=== PATIENT | female | born 1940 | race Hispanic/Latino ===

== ENCOUNTER 2024-01-16 17:00 | Inpatient (IN) | payer MEDICARE ==
[~2024-01-16] VITALS: Ht 152.4 cm; Wt 59.9 kg
[2024-01-16 00:25] VITALS: BP 87/47; PULSE 62; RESP 18; TEMP 99; O2SAT 100
[2024-01-16 18:48] LABS: CLARITY,URINE TURBID (CLEAR); COLOR,URINE YELLOW (YELLOW); LEUKOCYTE ESTERASE ,URINE LARGE (NEGATIVE); NITRITE,URINE NEGATIVE (NEGATIVE); PH,URINE 6 (5 - 7); PROTEIN,URINE DIPSTICK >=300 (NEGATIVE)
[2024-01-16 18:49] LABS: BILIRUBIN,URINE SMALL (NEGATIVE); GLUCOSE, URINE NEGATIVE (NEGATIVE); KETONES,URINE 2+ (NEGATIVE); URINE UROBILINOGEN >=8 mg/dL (0.2 - 1)
[2024-01-16 18:57] LABS: BACTERIA,URINE FEW /HPF; EPITHELIAL CELLS,URINE RARE /LPF; WBC,URINE (MAN) >50 /HPF (0-5)
[2024-01-16 19:01] LABS: CORONAVIRUS COVID-19 AG NEGATIVE (NEGATIVE); INFLUENZA A AG NEGATIVE (NEGATIVE); INFLUENZA B AG NEGATIVE (NEGATIVE)
[2024-01-16 19:03] LABS: BASOPHILS % 0.2 % (0.0-1.0); HEMATOCRIT 36.9 % (34.2-44.1); HEMOGLOBIN 11.6 g/dL (12.0-16.0); LYMPHOCYTES # (AUTO) 1.4 (1.0-3.2); LYMPHOCYTES % 12.1 % (18.0-39.1); MEAN CORPUSCULAR HEMOGLOBIN 29.3 pg (28-32); MEAN CORPUSCULAR HGB CONC 31.4 g/dL (31-35); MEAN CORPUSCULAR VOLUME 93.2 fL (81-99); MONOCYTES # (AUTO) 2.1 (0.2-0.8); MONOCYTES % 18.6 % (4.4-11.3); NEUTROPHILS # (AUTO) 7.8 (2.1-6.9); NEUTROPHILS % 68.4 % (38.7-80.0); PLATELET COUNT 146 x10e3/uL (140-360); RED BLOOD COUNT 3.96 x10e6/uL (3.6-5.1); RED CELL DISTRIBUTION WIDTH 15.9 % (11.7-14.4); WHITE BLOOD COUNT 11.34 x10e3/uL (4.8-10.8)
[2024-01-16 19:11] LABS: INR 1.21
[2024-01-16 19:12] LABS: PARTIAL THROMBOPLASTIN TIME 40.5 seconds (23.8-35.5)
[2024-01-16 19:21] LABS: ALKALINE PHOSPHATASE 90 IU/L (40-150); ANION GAP 17.5 mmol/L (8-16); BILIRUBIN,TOTAL 0.7 mg/dL (0.2-1.2); BLOOD UREA NITROGEN 18 mg/dL (7-26); BUN/CREATININE RATIO 21 (6-25); CALCIUM 9.8 mg/dL (8.4-10.2); CARBON DIOXIDE 25 mmol/L (22-29); CHLORIDE 101 mmol/L (98-107); CREATININE, SERUM 0.87 mg/dL (0.57-1.11); EST GLOMERULAR FILTRATION RATE 66 ML/MIN (>=60); GLUCOSE 95 mg/dL (74-118); POTASSIUM 4.5 mmol/L (3.5-5.1); SODIUM 139 mmol/L (136-145)
[2024-01-16] MEDS: SODIUM CHLORIDE 0.9% 1000ML 1,000 ML IV ONE (19:24)
[2024-01-16 19:29] VITALS: PULSE 76; RESP 14; TEMP 98.7; O2SAT 100
[2024-01-16 19:44] LABS: ALANINE AMINOTRANSFERASE < 6 IU/L (0-55)
[2024-01-16] MEDS ORDERED: CIPRO500 MG PO (20:23)
[2024-01-16] MEDS: ACETAMINOPHEN 325 MG TAB PO ONE (20:32)
[2024-01-16 20:55] LABS: LYMPHOCYTES % (MANUAL) 9 % (19-48); MONOCYTES % (MANUAL) 17 % (3.4-9.0); NEUTROPHILS % (MANUAL) 74 % (40-74); PLATELET ESTIMATE ADEQUATE; PLATELET MORPHOLOGY COMMENT NORMAL; RBC MORPHOLOGY COMMENT NORMAL
[2024-01-16 21:00] VITALS: RESP 14
[2024-01-16] MEDS: ONDANSETRON HCL INJ 2MG/ML 2ML 2 MG/ML VIAL IV STA (21:10)
[2024-01-16] MEDS ORDERED: IOPAMIDOL 370 MG/ML 100 ML INFUS..BTL INJ ONE (21:43)
[2024-01-16 23:33] VITALS: PULSE 77
[2024-01-16] MEDS ORDERED: ACETAMINOPHEN 325 MG TAB PO PRN (23:45)
[2024-01-16] MEDS ORDERED: ONDANSETRON HCL INJ 2MG/ML 2ML 2 MG/ML VIAL IV PRN (23:45)
[2024-01-17] VITALS (12 sets, daily range): BP systolic 87–127; BP diastolic 46–98; PULSE 55–82; RESP 14–18; TEMP 97.7–99; O2SAT 96–100
[2024-01-17] MEDS ORDERED: PREGABALIN75 MG PO (00:38)
[2024-01-17] MEDS ORDERED: ASPIRIN EC81 MG PO (00:38)
[2024-01-17] MEDS ORDERED: ATORVASTATIN CA10 MG PO (00:38)
[2024-01-17] MEDS ORDERED: AMLODIPINE BES2.5 MG PO (00:38)
[2024-01-17] MEDS ORDERED: ESOMEPRAZOLE MA40 MG PO (00:38)
[2024-01-17] MEDS ORDERED: CARBIDOPA-LEVO1 EAC1 PO (00:38)
[2024-01-17] MEDS ORDERED: DONEPEZIL HCL10 MG PO (00:38)
[2024-01-17] MEDS ORDERED: POTASSIUM CHLO20 ME1 PO (00:38)
[2024-01-17] MEDS ORDERED: DIVALPROEX SOD500 MG PO (00:38)
[2024-01-17] MEDS ORDERED: FUROSEMIDE20 MG PO (00:38)
[2024-01-17] MEDS: FUROSEMIDE 20 MG TAB PO SCH (09:11)
[2024-01-17] MEDS: ASPIRIN 81 MG ENTERIC COATED PO SCH (09:11)
[2024-01-17] MEDS: CARBIDOPA/LEVODOPA 25/100 TAB PO SCH (09:11)
[2024-01-17] MEDS: PANTOPRAZOLE SOD 40 MG TABEC PO SCH (09:11)
[2024-01-17] MEDS: AMLODIPINE BESYLATE 5 MG TAB PO SCH (09:11)
[2024-01-17] MEDS: PREGABALIN 75 MG CAP PO SCH (21:02)
[2024-01-17] MEDS: DEPAKOTE DELAYED-RELEASE TAB 500 MG PO SCH (21:02)
[2024-01-17] MEDS: ATORVASTATIN 10 MG TAB PO SCH (21:03)
[2024-01-17] MEDS: DONEPEZIL HCL 5 MG TAB PO SCH (21:03)
[2024-01-18] VITALS: BP 122/54; PULSE 60; RESP 18; TEMP 98; O2SAT 100
[2024-01-18 04:00] VITALS: BP 135/57; PULSE 64; RESP 17; TEMP 98.4; O2SAT 97
[2024-01-18 07:45] VITALS: PULSE 60; RESP 16; O2SAT 92
[2024-01-18 08:00] VITALS: BP 128/59; PULSE 62; RESP 18; TEMP 98.4; O2SAT 100
[2024-01-18] MEDS: BALSAM PERU/CASTOR OIL 60 GM OINT...G. TP SCH (08:36)
[2024-01-18 09:05] VITALS: BP 135/57; PULSE 64; RESP 17; TEMP 98.4; O2SAT 97
[2024-01-18] MEDS ORDERED: CIPRO500 MG PO (13:27)
[2024-01-18] MEDS ORDERED: ACIDOPHILUS1 EAC1 PO (13:27)
== END 2024-01-18 14:42 | disposition home or self-care (01) | DRG 689 ==
LOC: ER 17:06 → ERHOLD 21:16 → MED/SURG2 23:55
PROVIDERS: ADMIT Internal Medicine; ATTEND Internal Medicine
DX: N10 Acute pyelonephritis (principal); G93.41 Metabolic encephalopathy; B96.20 Unspecified Escherichia coli [E. coli] as the cause of diseases classified elsewhere; N30.90 Cystitis, unspecified without hematuria; G20.A1 Parkinson's disease without dyskinesia, without mention of fluctuations; F02.80 Dementia in other diseases classified elsewhere, unspecified severity, without behavioral disturbance, psychotic disturbance, mood disturbance, and anxiety; I10 Essential (primary) hypertension; E78.00 Pure hypercholesterolemia, unspecified; Z79.899 Other long term (current) drug therapy; Z79.82 Long term (current) use of aspirin
CPT/HCPCS: 36415; 70450; 70551; 71045; 74177; 80053; 81001; 82948; 83605; 85025; 85610; 85730; 87040; 87086; 87186; 93005; 94799; 99252; 99284; J0696; J2405; J7030; Q9967

== ENCOUNTER 2024-03-09 14:54 | Inpatient (IN) | payer MEDICARE ==
[~2024-03-09] VITALS: Ht 180.3 cm; Wt 59.9 kg
[~2024-03-09 14:54] MED LIST: ACIDOPHILUS1 EAC1 PO; AMLODIPINE BES2.5 MG PO; ASPIRIN EC81 MG PO; ATORVASTATIN CA10 MG PO; CARBIDOPA-LEVO1 EAC1 PO; CIPRO500 MG PO; DIVALPROEX SOD500 MG PO; DONEPEZIL HCL10 MG PO; ESOMEPRAZOLE MA40 MG PO; FUROSEMIDE20 MG PO; POTASSIUM CHLO20 ME1 PO; PREGABALIN75 MG PO
[2024-03-09 14:55] VITALS: TEMP 98.6
[2024-03-09 15:40] LABS: BASOPHILS % 0.1 % (0.0-1.0); HEMATOCRIT 48.6 % (34.2-44.1); HEMOGLOBIN 14.7 g/dL (12.0-16.0); LYMPHOCYTES # (AUTO) 1.1 (1.0-3.2); LYMPHOCYTES % 13.6 % (18.0-39.1); MEAN CORPUSCULAR HEMOGLOBIN 29.9 pg (28-32); MEAN CORPUSCULAR HGB CONC 30.2 g/dL (31-35); MEAN CORPUSCULAR VOLUME 98.8 fL (81-99); MONOCYTES # (AUTO) 0.8 (0.2-0.8); MONOCYTES % 9.5 % (4.4-11.3); NEUTROPHILS # (AUTO) 6.2 (2.1-6.9); NEUTROPHILS % 76.3 % (38.7-80.0); PLATELET COUNT 148 x10e3/uL (140-360); RED BLOOD COUNT 4.92 x10e6/uL (3.6-5.1); RED CELL DISTRIBUTION WIDTH 17.1 % (11.7-14.4); WHITE BLOOD COUNT 8.18 x10e3/uL (4.8-10.8)
[2024-03-09 16:03] LABS: ALBUMIN 3.9 g/dL (3.5-5.0); ALKALINE PHOSPHATASE 75 IU/L (40-150); ANION GAP 19.9 mmol/L (8-16); BILIRUBIN,TOTAL 0.9 mg/dL (0.2-1.2); BLOOD UREA NITROGEN 15 mg/dL (7-26); BUN/CREATININE RATIO 18 (6-25); CALCIUM 10.5 mg/dL (8.4-10.2); CARBON DIOXIDE 21 mmol/L (22-29); CHLORIDE 102 mmol/L (98-107); CREATININE, SERUM 0.85 mg/dL (0.57-1.11); EST GLOMERULAR FILTRATION RATE 68 ML/MIN (>=60); GLUCOSE 98 mg/dL (74-118); SODIUM 138 mmol/L (136-145)
[2024-03-09 16:07] LABS: ALANINE AMINOTRANSFERASE < 6 IU/L (0-55); POTASSIUM 4.9 mmol/L (3.5-5.1)
[2024-03-09 16:18] LABS: BILIRUBIN,URINE NEGATIVE (NEGATIVE); CLARITY,URINE CLOUDY (CLEAR); COLOR,URINE YELLOW (YELLOW); GLUCOSE, URINE NEGATIVE (NEGATIVE); KETONES,URINE 1+ (NEGATIVE); LEUKOCYTE ESTERASE ,URINE LARGE (NEGATIVE); NITRITE,URINE POSITIVE (NEGATIVE); PH,URINE 7 (5 - 7); PROTEIN,URINE DIPSTICK >=300 (NEGATIVE); URINE UROBILINOGEN 1 mg/dL (0.2 - 1)
[2024-03-09 16:31] LABS: BACTERIA,URINE MANY /HPF; RBC,URINE 21-50 /HPF (0-5); WBC,URINE (MAN) >50 /HPF (0-5)
[2024-03-09 16:32] LABS: EPITHELIAL CELLS,URINE RARE /LPF
[2024-03-09 16:40] LABS: CORONAVIRUS COVID-19 AG NEGATIVE (NEGATIVE); INFLUENZA A AG NEGATIVE (NEGATIVE); INFLUENZA B AG NEGATIVE (NEGATIVE)
[2024-03-09] MEDS: SODIUM CHLORIDE 0.9% 1000ML 1,000 ML IV SCH ×2 (16:42→16:51)
[2024-03-09] MEDS: ACETAMINOPHEN 1000 MG/100 ML IV STA (16:43)
[2024-03-09] MEDS: KETOROLAC TROMETHAMINE 30 MG/ML VIAL IV STA (16:44)
[2024-03-09 16:50] VITALS: PULSE 101; RESP 16
[2024-03-09] MEDS ORDERED: IOPAMIDOL 370 MG/ML 100 ML INFUS..BTL INJ ONE (17:27)
[2024-03-09] MEDS ORDERED: ONDANSETRON HCL INJ 2MG/ML 2ML 2 MG/ML VIAL IV PRN (17:30)
[2024-03-09] MEDS ORDERED: ACETAMINOPHEN 325 MG TAB PO PRN (17:30)
[2024-03-09] MEDS ORDERED: CLONIDINE HCL 0.1 MG TAB PO PRN (17:30)
[2024-03-09 20:00] VITALS: BP 93/48; PULSE 64; RESP 19; TEMP 97.7; O2SAT 94
[2024-03-09 21:10] VITALS: BP 93/48; PULSE 64; RESP 19; TEMP 97.7; O2SAT 94
[2024-03-09] MEDS: DONEPEZIL HCL 5 MG TAB PO SCH (21:13)
[2024-03-09] MEDS: DEPAKOTE DELAYED-RELEASE TAB 500 MG PO SCH (21:13)
[2024-03-09] MEDS: ATORVASTATIN 10 MG TAB PO SCH (21:14)
[2024-03-09] MEDS ORDERED: FAMOTIDINE20 MG PO (22:32)
[2024-03-09] MEDS ORDERED: CLOTRIMAZOLE15 GM TOP (22:32)
[2024-03-10] VITALS (8 sets, daily range): BP systolic 94–118; BP diastolic 38–58; PULSE 57–86; RESP 16–18; TEMP 96.3–98.1; O2SAT 96–100
[2024-03-10 07:13] LABS: ANION GAP 13.5 mmol/L (8-16); CALCIUM 8.6 mg/dL (8.4-10.2); CREATININE, SERUM 0.68 mg/dL (0.57-1.11); POTASSIUM 3.5 mmol/L (3.5-5.1)
[2024-03-10] MEDS: CLOTRIMAZOLE 1% CR 15 GM TOP SCH (08:43)
[2024-03-10] MEDS: PANTOPRAZOLE SOD 40 MG TABEC PO SCH (08:47)
[2024-03-10] MEDS: ASPIRIN 81 MG ENTERIC COATED PO SCH (08:47)
[2024-03-10] MEDS: CARBIDOPA/LEVODOPA 25/100 TAB PO SCH (08:47)
[2024-03-10] MEDS: LACTOBACILLUS ACIDOPHILUS CAPSULE PO SCH (08:47)
[2024-03-10 09:22] LABS: BASOPHILS % 0.2 % (0.0-1.0); EOSINOPHILS % 0.2 % (0.0-6.0); HEMOGLOBIN 9.5 g/dL (12.0-16.0); LYMPHOCYTES # (AUTO) 1.6 (1.0-3.2); LYMPHOCYTES % 14.7 % (18.0-39.1); MONOCYTES # (AUTO) 1.5 (0.2-0.8); MONOCYTES % 13.8 % (4.4-11.3); NEUTROPHILS # (AUTO) 7.8 (2.1-6.9); NEUTROPHILS % 70.9 % (38.7-80.0); RED BLOOD COUNT 3.17 x10e6/uL (3.6-5.1); RED CELL DISTRIBUTION WIDTH 16.6 % (11.7-14.4); WHITE BLOOD COUNT 10.99 x10e3/uL (4.8-10.8)
[2024-03-10 09:30] LABS: HEMATOCRIT 31.7 % (34.2-44.1)
[2024-03-10 09:31] LABS: PLATELET COUNT 112 x10e3/uL (140-360)
[2024-03-10] MEDS: ENOXAPARIN SOD INJ 40 MG/0.4 ML SYR SC SCH (16:05)
[2024-03-10] MEDS: Vancomycin IV 1 GM in SODIUM CHLORIDE 0.9% 250ML 250 ML IV ONE (21:04)
[2024-03-10] MEDS: PREGABALIN 75 MG CAP PO SCH (21:18)
[2024-03-11] VITALS (8 sets, daily range): BP systolic 108–132; BP diastolic 38–80; PULSE 58–86; RESP 17–20; TEMP 97.5–98.1; O2SAT 96–100
[2024-03-11 07:05] LABS: BASOPHILS % 0.2 % (0.0-1.0); EOSINOPHILS % 0.2 % (0.0-6.0); HEMATOCRIT 28.4 % (34.2-44.1); HEMOGLOBIN 8.9 g/dL (12.0-16.0); LYMPHOCYTES # (AUTO) 2.1 (1.0-3.2); LYMPHOCYTES % 21.6 % (18.0-39.1); MEAN CORPUSCULAR HEMOGLOBIN 29.4 pg (28-32); MEAN CORPUSCULAR HGB CONC 31.3 g/dL (31-35); MEAN CORPUSCULAR VOLUME 93.7 fL (81-99); MONOCYTES # (AUTO) 1.4 (0.2-0.8); MONOCYTES % 13.8 % (4.4-11.3); NEUTROPHILS # (AUTO) 6.3 (2.1-6.9); NEUTROPHILS % 63.8 % (38.7-80.0); PLATELET COUNT 124 x10e3/uL (140-360); RED BLOOD COUNT 3.03 x10e6/uL (3.6-5.1); RED CELL DISTRIBUTION WIDTH 16.2 % (11.7-14.4); WHITE BLOOD COUNT 9.89 x10e3/uL (4.8-10.8)
[2024-03-11 07:29] LABS: ANION GAP 13.7 mmol/L (8-16); CALCIUM 8.7 mg/dL (8.4-10.2); CREATININE, SERUM 0.59 mg/dL (0.57-1.11); POTASSIUM 3.7 mmol/L (3.5-5.1)
[2024-03-11] MEDS: ENOXAPARIN SOD INJ 40 MG/0.4 ML SYR SC SCH (16:53)
[2024-03-12] VITALS: BP 125/54; PULSE 64; RESP 18; TEMP 97.4; O2SAT 98
[2024-03-12 04:00] VITALS: BP 139/59; PULSE 60; RESP 18; TEMP 98.2; O2SAT 98
[2024-03-12 07:25] LABS: ANION GAP 14.3 mmol/L (8-16); CALCIUM 9.2 mg/dL (8.4-10.2); CREATININE, SERUM 0.53 mg/dL (0.57-1.11); POTASSIUM 4.3 mmol/L (3.5-5.1)
[2024-03-12 08:07] LABS: BASOPHILS % 0.2 % (0.0-1.0); EOSINOPHILS # (AUTO) 0.1 (0.0-0.4); EOSINOPHILS % 1.3 % (0.0-6.0); HEMATOCRIT 31.9 % (34.2-44.1); HEMOGLOBIN 9.7 g/dL (12.0-16.0); LYMPHOCYTES # (AUTO) 2.2 (1.0-3.2); LYMPHOCYTES % 40.3 % (18.0-39.1); MEAN CORPUSCULAR HEMOGLOBIN 29.7 pg (28-32); MEAN CORPUSCULAR HGB CONC 30.4 g/dL (31-35); MEAN CORPUSCULAR VOLUME 97.6 fL (81-99); MONOCYTES # (AUTO) 0.8 (0.2-0.8); NEUTROPHILS # (AUTO) 2.4 (2.1-6.9); NEUTROPHILS % 43.6 % (38.7-80.0); PLATELET COUNT 127 x10e3/uL (140-360); RED BLOOD COUNT 3.27 x10e6/uL (3.6-5.1); RED CELL DISTRIBUTION WIDTH 15.7 % (11.7-14.4); WHITE BLOOD COUNT 5.43 x10e3/uL (4.8-10.8)
[2024-03-12 08:13] VITALS: BP 150/59; PULSE 61; RESP 20; TEMP 98.5; O2SAT 100
[2024-03-12 10:33] VITALS: BP 150/59; PULSE 61; RESP 20; TEMP 98.5; O2SAT 100
[2024-03-12 12:02] VITALS: BP 138/66; PULSE 63; RESP 20; TEMP 98.4; O2SAT 99
== END 2024-03-12 12:40 | disposition home health service (06) | DRG 689 ==
LOC: ER 15:04 → ERHOLD 16:33 → MED/SURG3 18:07
PROVIDERS: ADMIT Internal Medicine; ATTEND Internal Medicine
DX: N10 Acute pyelonephritis (principal); G93.41 Metabolic encephalopathy; E44.0 Moderate protein-calorie malnutrition; Z68.1 Body mass index [BMI] 19.9 or less, adult; B96.20 Unspecified Escherichia coli [E. coli] as the cause of diseases classified elsewhere; B36.8 Other specified superficial mycoses; G20.A1 Parkinson's disease without dyskinesia, without mention of fluctuations; N30.90 Cystitis, unspecified without hematuria; I10 Essential (primary) hypertension; E78.00 Pure hypercholesterolemia, unspecified; F01.50 Vascular dementia, unspecified severity, without behavioral disturbance, psychotic disturbance, mood disturbance, and anxiety; R53.81 Other malaise; R00.0 Tachycardia, unspecified; Z71.3 Dietary counseling and surveillance; Z71.81 Spiritual or religious counseling; Z11.52 Encounter for screening for COVID-19; Z79.899 Other long term (current) drug therapy; Z79.82 Long term (current) use of aspirin
CPT/HCPCS: 36415; 71045; 74177; 80048; 80053; 81001; 83605; 85025; 87040; 87071; 87086; 87186; 87205; 94799; 99252; 99284; J0696; J1650; J1885; J7030; J7050; Q9967